=== PATIENT | female | born 1965 | race Two or more races ===

== ENCOUNTER 2018-07-23 09:25 | Emergency (ER) | payer OTHER ==
--- NOTE | 2018-07-23 10:30 | UC ---
Respiratory Complaint HPI - HPI Summary HPI Summary: 52 yo with cough and congestion starting 3 days ago; also stopped taking anti- hypertensive medication at least one month ago. Nurse: cough for 3 days; elevated BP. - History of Current Complaint Chief Complaint: UCRespiratory Stated Complaint: SINUS CONGESTION, AND COUGH Time Seen by Provider: 07/23/18 10:28 Hx Obtained From: Patient Hx Last Menstrual Period: Currently menstruating ?: No Onset/Duration: Gradual Onset Pain Intensity: 7 - Risk Factors Pulmonary Embolism Risk Factors: Negative Cardiac Risk Factors: Hypertension Pseudomonas Risk Factors: Negative Tuberculosis Risk Factors: Negative - Allergies/Home Medications Allergies/Adverse Reactions: Allergies Allergy/AdvReac Type Severity Reaction Status Date / Time codeine Allergy Hives/Diff. Verified 07/23/18 09:30 Breathing/I tching PMH/Surg Hx/FS Hx/Imm Hx Previously Healthy: Yes Cardiovascular History: Hypertension - Surgical History Surgical History: Yes Surgery Procedure, Year, and Place: gall bladder,. lt acl to knee. 2 c- sections - Family History Known Family History: Positive: Cardiac Disease, Hypertension - Social History Occupation: Employed Part-time - [employer] Alcohol Use: None Substance Use Type: None Smoking Status (MU): Never Smoked Tobacco Have You Smoked in the Last Year: No - Immunization History Most Recent Influenza Vaccination: 04/18 Review of Systems All Other Systems Reviewed And Are Negative: Yes Constitutional: Positive: Negative Skin: Positive: Negative Eyes: Positive: Negative ENT: Positive: Sinus Congestion, Sinus Pain/Tenderness Respiratory: Positive: Shortness Of Breath, Cough Cardiovascular: Positive: Negative Gastrointestinal: Positive: Negative Genitourinary: Positive: Negative Motor: Positive: Negative Neurovascular: Positive: Negative Musculoskeletal: Positive: Negative Neurological: Positive: Negative Psychological: Positive: Negative Is Patient Immunocompromised?: No Physical Exam - Summary Physical Exam Summary: Elevated blood pressure. Triage Information Reviewed: Yes Appearance: Ill-Appearing - mild discomfort; cold; cough. Vital Signs: Initial Vital Signs Temp 98.8 F 07/23/18 09:32 Pulse 100 07/23/18 09:32 Resp 20 07/23/18 09:32 BP 180/126 07/23/18 09:32 Pulse Ox 98 07/23/18 09:32 Vital Signs Reviewed: Yes Eye Exam: Normal ENT Exam: Normal Dental Exam: Normal Neck exam: Normal Neck: Positive: 1 Respiratory Exam: Normal Respiratory: Positive: Chest non-tender, Lungs clear, Normal breath sounds Cardiovascular Exam: Normal Cardiovascular: Positive: RRR, No Murmur, Pulses Normal Abdominal Exam: Normal Abdomen Description: Positive: Nontender, No Organomegaly, Soft Musculoskeletal Exam: Normal Neurological Exam: Normal Psychological Exam: Normal Skin Exam: Normal UC Diagnostic Evaluation - Laboratory O2 Sat by Pulse Oximetry: 98 Respiratory Course/Dx - Course Course Of Treatment: 52 yo female with complaint of cough, sinus discomfort and non compliance with blood pressure medication. It's unclear exactly how long she has been off her medications. Her BP here is 180/126. She has tender sinuses. My dx is sinusitis and elevated blood pressure. I will restart her medications and she will follow up on Wednesday. I started her medications today because I am concerned about whether she will be able to follow through soon with her own physician. She has been non-compliant for at least one month. She knows to recheck for dizziness, shortness of breath, feeling faint. She will also be treated for sinusitis. - Differential Dx/Diagnosis Differential Diagnosis/HQI/PQRI: Bronchitis, Sinusitis, Other - hypertension Provider Diagnosis: Sinusitis, Hypertension Discharge - Sign-Out/Discharge Documenting (check all that apply): Patient Departure All imaging exams completed and their final reports reviewed: No Studies - Discharge Plan Condition: Stable Disposition: HOME Prescriptions: Amoxicillin PO (*) [Amoxicillin 875 MG (*)] 875 mg PO BID #20 tab MDD 2 Labetalol TAB* [Trandate TAB*] 100 mg PO DAILY #30 tab MDD 1 Triamterene/Hydrochlorothiazid [Triamterene/Hydrochloroth 50-25 mg] 1 cap PO DAILY #30 cap MDD 1 Patient Education Materials: Sinusitis (ED), Hypertension (ED) Referrals: Gris Kaur MD [Primary Care Provider] - Additional Instructions: WE DISCUSSED: You have sinusitis and bronchitis. I have put you on amoxicillin for 10 days. Your blood pressure is high. I have restarted your blood pressure medications. We have called [facility] to check on dosage. Follow up with your doctor for a full physical and BP check in the next few weeks. Call you doctor on Wednesday. They need to know that you have restarted your medications and your medications need to be rechecked, and your blood pressure needs to be checked on Wednesday. Move slowly when you change position until you get used to your medications again. If you are dizzy or have any other problems , GO TO ED. - Billing Disposition and Condition Condition: STABLE Disposition: Home
[2018-07-23 10:52] VITALS: BP 180/120
== END 2018-07-23 11:18 | disposition home or self-care (01) ==
LOC: UCEAST 09:25
DX: J32.9 Chronic sinusitis, unspecified (principal); I10 Essential (primary) hypertension; Z88.5 Allergy status to narcotic agent
CPT/HCPCS: 99212; G0463